=== PATIENT | male | born 1970 | race Caucasian/White ===

== ENCOUNTER 2018-11-03 04:42 | Emergency (ER) | payer SELFPAY ==
[~2018-11-03] VITALS: Ht 167.6 cm; Wt 82.1 kg
[2018-11-03 04:45] VITALS: BP 124/67; PULSE 67; RESP 18; Ht 167.6 cm; Wt 82.1 kg
[2018-11-03] MEDS ORDERED: CEPH-443 PO (06:19)
[2018-11-03] MEDS ORDERED: SULF1TAB31 PO (06:19)
--- NOTE | 2018-11-03 06:33 | ERD ---
ER Documentation Chief Complaint Chief Complaint abscess to left buttock x1 mo. c/o pain HPI 48-year-old male presents for left buttock abscess times 1 month. States that he has 8 out of 10 pain. He states that the an abscess about a month ago and drained it himself. He has been having pain ever since. 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 Denies fevers or chills. Denies chest pain or shortness of breath. ROS All systems reviewed and are negative except as per history of present illness. Medications Home Meds Active Scripts Acetaminophen* (Acetaminophen*) 500 MG Extra Strength Tablet, 500 MG PO Q4H PRN for PAIN AND OR ELEVATED TEMP, #30 TAB Prov:ARIANNA BARNHART DO 11/03/18 Ibuprofen* (Motrin*) 600 Mg Tab, 600 MG PO Q6H PRN for PAIN AND OR ELEVATED TEMP, #30 TAB Prov:ARIANNA BARNHART DO 11/03/18 Cephalexin* (Keflex*) 500 Mg Capsule, 500 MG PO TID for skin infection for 7 Days, #21 CAP Prov:ARIANNA BARNHART DO 11/03/18 Sulfamethoxazole/Trimethoprim* (Bactrim Ds* Tablet) 1 Each Tablet, 1 TAB PO BID for abscess for 7 Days, #14 TAB Prov:ARIANNA BARNHART DO 11/03/18 Physical Exam Vitals Vital Signs Date Temp Pulse Resp B/P (MAP) Pulse Ox O2 O2 Flow FiO2 Time Delivery Rate 11/03/18 97.1 67 18 124/67 99 04:45 (86) Physical Exam Const: No acute distress Resp: Clear to auscultation bilaterally Cardio: Regular rate and rhythm, no murmurs Abd: Soft, non tender, non distended. Normal bowel sounds Skin: Well-healed wound area noted in the left buttock, there is underlying induration noted, no erythema, no increased warmth. Back: No midline or flank tenderness Ext: No cyanosis, or edema Neur: Awake and alert Psych: Normal Mood and Affect Procedures/MDM Medical Decision Making: Differential diagnosis includes but not limited to healing abscess, cellulitis, cysts, dermatitis Patient appeared well on physical exam. Examination of the left buttock showed a healed abscess area with induration underneath. No active infection noted, no erythema, no warmth noted Patient likely has pain secondary to a healing abscess with induration. There is no drainable abscess noted on physical examination. Patient was given be given a trial of antibiotics. Advise follow-up with primary care physician for recheck. Otherwise patient advised to return to ER in 48 hours for wound check. Prescription(s): Patient given prescription for Motrin, Tylenol, Bactrim, Keflex. Patient advised to follow up with PCP in 1-2 days. Patient advised to return to ED for new or worsening symptoms. Patient stable on discharge from the ED. Disclaimer: Inadvertent spelling and grammatical errors are likely due to EHR/dictation software use and do not reflect on the overall quality of patient care. Also, please note that the electronic time recorded on this note does not necessarily reflect the actual time of the patient encounter. Departure Diagnosis: Primary Impression: Abscess Condition: Fair Patient Instructions: Abscess, Antiobiotic Treatment Only Additional Instructions: Llame al doctor MAANA y beena noman SAMANTHA PARA DENTRO DE 1-2 WARNER.Dgale a la secretaria que nosotros le instruimos hacer esta samantha.Avise o llame si oneil condicin se empeora antes de la samantha. Regresa aqui si peor o no mejor. ARIANNA BARNHART DO Nov 03, 2018 06:33
[2018-11-03] MEDS ORDERED: IBUP-1542 PO (06:34)
[2018-11-03] MEDS ORDERED: ACET-141 PO (06:34)
== END 2018-11-03 06:52 | disposition home or self-care (01) ==
LOC: FTE 04:42
DX: L02.31 Cutaneous abscess of buttock (principal)
CPT/HCPCS: 99283